=== PATIENT | male | born 1955 | race Caucasian/White ===

== ENCOUNTER 2018-01-25 08:09 | Emergency (ER) | payer OTHER, MEDICAID, SELFPAY ==
[2018-01-25 08:17] VITALS: BP 173/87; PULSE 92; RESP 18; TEMP 36.4; O2SAT 99; BMI 38.7
[2018-01-25 09:36] VITALS: BP 147/84; PULSE 87; RESP 16; TEMP 36.1; O2SAT 95
--- NOTE | 2018-01-25 11:07 | DI.CT.S_ITS ---
PROCEDURE: CT HEAD/BRAIN WO CON INDICATIONS: frequent falls, dizzy head sensation TECHNIQUE: Noncontrast 4.5 mm thick angled axial sections acquired from the foramen magnum to the vertex, with coronal and sagittal reformats. For radiation dose reduction, the following was used: automated exposure control, adjustment of mA and/or kV according to patient size. COMPARISON: None. FINDINGS: Image quality: Excellent. CSF spaces: Basal cisterns are patent. No extra-axial fluid collections. Ventricles are normal in size and shape. Brain: No midline shift. No intracranial masses or hemorrhage. Hoffman-white matter interface is normal. Skull and face: Calvarium and visualized facial bones are intact, without suspicious lesions. Sinuses: Visualized sinuses and mastoids are clear. IMPRESSION: No CT evidence of acute intracranial pathology. Dictated by: Gavin Reeder M.D. on 01/25/2018 at 12:18 Approved by: Gavin Reeder M.D. on 01/25/2018 at 12:20
--- NOTE | 2018-01-25 11:07 | DI.RAD.S_ITS ---
PROCEDURE: XR SACRUM COCCYX MIN 2V INDICATIONS: pain s/p fall TECHNIQUE: 3 views of the sacrum and coccyx acquired. COMPARISON: None. FINDINGS: Bones: No fractures or dislocations. No suspicious bony lesions. Age-appropriate degenerative changes of the sacroiliac joints and included lower lumbar spine are present. Soft tissues: Visualized bowel gas pattern is normal. No suspicious soft tissue densities. IMPRESSION: No displaced fracture of the sacrum or coccyx. Dictated by: Prem Leach M.D. on 01/25/2018 at 10:48 Approved by: Prem Leach M.D. on 01/25/2018 at 10:49
[2018-01-25 11:33] LABS: Add Manual Diff / Slide Review NO; Basophils Percent Auto 0.6 % (0-2); Eosinophils Percent Auto 3.5 % (2-4); Hematocrit 42.2 % (41-53); Hemoglobin 14.5 g/dL (13.5-17.5); Lymphocytes Percent Auto 21.5 % (25-40); Mean Corpuscular HGB Conc 34.4 % (30-36); Mean Corpuscular Hemoglobin 29.3 PG (26-34); Mean Corpuscular Volume 85.1 fL (80-100); Monocytes Percent Auto 7.9 % (3-14); Neutrophils Absolute Auto 4600 /uL (3000-5900); Neutrophils Percent Auto 66.5 % (50-75); Platelet Count 167 X10^3/uL (150-400); Red Blood Cell Count 4.96 X10^6/uL (4.5-5.9); Red Cell Distribution Width 13.6 % (11.6-14.8); White Blood Cell Count 6.9 X10^3/uL (4.5-11.0)
[2018-01-25 11:42] LABS: BUN Creatinine Ratio 36.7 (6-22); Calcium 9.3 mg/dL (8.4-10.2); Estimated Glomerular Filt Rate > 60.0 mL/min (>60); Glucose 320 mg/dL (80-110); HEMOLYSIS < 15 (0-50); Potassium 4.5 mmol/L (3.4-5.1); Sodium 138 mmol/L (137-145)
--- NOTE | 2018-01-25 12:40 | ED_ITS ---
HPI - Extremity Problem General Chief complaint: Extremity Problem,Nontraumatic Stated complaint: PT STATES THINKS HE BROKE TAILBONE History of Present Illness HPI Narrative: HPI 62-year-old male presents for evaluation of approximately 7 days of coccygeal pain after he slipped and fell onto his backside at home. Patient reports he's feeling fuzzy and lightheaded when he fell onto his botton on a hard brick surface. Patient has had ongoing coccygeal discomfort but remains able to ambulate without pain. Pain is worse when seated. Patient denied preceding lightheadedness, shortness breath, chest pain. M/S/F/SocHx notable for: please see HPI; remainder reviewed with patient and in chart. ROS: Negative constitutional, eye, cardiovascular, pulmonary, GI, , MSK, skin , neurologic, psychiatric, endocrine unless noted in the HPI. Exam Gen: Pleasant, non-toxic appearing, resting comfortably. HEENT: NC, AT, PEERL, EOMI. Resp: Clear to auscultation bilaterally, normal work of breathing, no accessory muscle usage. Card: Regular rate and rhythm with no murmurs, rubs, or gallops, extremities warm and well perfused. GI: Non-tender to palpation throughout all quadrants, no focal tenderness at McBurney's point, negative Cardozo's sign, non-distended, no rebound or guarding. : No suprapubic tenderness to palpation. MSK: No visible deformities, strength and tone without visually appreciable deficit. C, T, L spine without tenderness palpation. Minimal coccygeal turns palpation. Pelvis nontender to palpation. Patient ambulatory with a steady narrow-base nonantalgic gait. No pilonidal cyst/abscess. Skin: Normal color with no visible lesions. Neuro: Gen AO x 3, no facial asymmetry, no gaze preference, no slurring of speech. Pupils equal and reactive, EOMI, no facial asymmetry, no nystagmus, phonation intact, SCM 5/5 bilaterally. Cerebellar: bilateral upper extremities without dysmetria. Psych: Mood and affect appropriate. Labs / Imaging: WBC 6.9, hemoglobin 13.5, sodium 138, potassium 4.5, XR sacrum/coccyx: no displaced fracture of the sacrum or coccyx. CT Head: no acute intracranial abnormality. EKG: SR at [address]-segment elevations or depressions, T-wave inversions or new LBBB. TN interval 160 msec, QTc 388 msec, no delta waves, epsilon waves, coved or saddle ST-segment changes in leads V1-3, preseptal or inferior lead Q-waves, biphasic P-waves, or T-wave inversions; no LVH. MDM Previous chart, nursing note, labs, imaging, and vitals reviewed. A: 62-year-old male presents for evaluation of approximately 7 days of coccygeal pain after he slipped and fell onto his backside at home. DDx & Evaluation: exam without evidence of clinically apparent coccygeal abnormality, infection, for skin breakdown, plain films without evidence of displaced fracture, suspect contusion versus nondisplaced fracture. No evidence of pelvic rib fracture basement history exam, no further clinically apparent traumatic abnormalities. EKG without evidence of arrhythmia. CT head without evidence of intracranial abnormalities. Patient discharged with PCP follow-up, instructed to use NSAIDs. As the patient was observed sitting comfortably on a bed a doughnut was not prescribed. Impression: coccygeal pain. (please reference below for remainder of encounter information) Related Data Previous Rx's Medication Instructions Recorded polyethylene glycol 3350 [Miralax] 17 gm PO Q 12 H #60 packet 05/07/16 nystatin 1 graham TOPICAL BID #15 gm 06/02/16 insulin lispro [Humalog U-100 30 u SQ BIDAC #90 day 08/09/16 Insulin] insulin glargine [Lantus U-100 50 unit SQ BID #30 day 11/09/16 Insulin] Allergies Allergy/AdvReac Type Severity Reaction Status Date / Time amoxicillin [AMOXICILLIN] Allergy Mild UNKNOWN Verified 01/25/18 08:31 paroxetine [From PAXIL] Allergy Mild DEPRESSION, Verified 01/25/18 08:31 MEAN Penicillins [PENICILLINS] Allergy Mild UNKNOWN Verified 01/25/18 08:31 aspirin [ASPIRIN] Allergy Unknown NOSE BLEEDS Verified 01/25/18 08:31 atenolol [ATENOLOL] Allergy Unknown Verified 01/25/18 08:31 celecoxib [CELECOXIB] Allergy Unknown UNKNOWN Verified 01/25/18 08:31 diltiazem [DILTIAZEM] Allergy Unknown Verified 01/25/18 08:31 hydrochlorothiazide Allergy Unknown Verified 01/25/18 08:31 [HYDROCHLOROTHIAZIDE] ibuprofen [IBUPROFEN] Allergy Unknown SWELLING Verified 01/25/18 08:31 lisinopril [LISINOPRIL] Allergy Unknown Verified 01/25/18 08:31 losartan [LOSARTAN] Allergy Unknown Verified 01/25/18 08:31 methyldopa [METHYLDOPA] Allergy Unknown Verified 01/25/18 08:31 metoprolol [METOPROLOL] Allergy Unknown Verified 01/25/18 08:31 acetaminophen [ACETAMINOPHEN] AdvReac Unknown INCREASES Verified 01/25/18 08:[address] CONTRAST Allergy Unknown Uncoded 12/28/17 11:50 PFSH Surgical History History of tonsillectomy Social History Smoking Status: Former smoker MDM - Extremity (Nontraumatic) Lab Data Result diagrams: 01/25/18 11:23 01/25/18 11:23 Lab Results 01/25/18 01/25/18 Range/Units 11:23 11:23 WBC 6.9 (4.5-11.0) X10^3/uL RBC 4.96 (4.5-5.9) X10^6/uL Hgb 14.5 (13.5-17.5) g/dL Hct 42.2 (41-53) % MCV 85.1 (80-100) fL MCH 29.3 (26-34) PG MCHC 34.4 (30-36) % RDW 13.6 (11.6-14.8) % Plt Count 167 (150-400) X10^3/uL Neut % (Auto) 66.5 (50-75) % Lymph % (Auto) 21.5 L (25-40) % [place] % (Auto) 7.9 (3-14) % Eos % (Auto) 3.5 (2-4) % Baso % (Auto) 0.6 (0-2) % Neut # (Auto) 4600 (6859-1877) /uL Sodium 138 (137-145) mmol/L Potassium 4.5 (3.4-5.1) mmol/L Chloride 102.0 (98-107) mmol/L Carbon Dioxide 25.0 (22-32) mmol/L BUN 22.0 H (9-20) mg/dL Creatinine 0.60 L (0.66-1.25) mg/dL Estimated GFR > 60.0 (>60) mL/min BUN/Creatinine Ratio 36.7 H (6-22) Glucose 320 H (80-110) mg/dL Calcium 9.3 (8.4-10.2) mg/dL Discharge Plan Departure Prescriptions: No Action polyethylene glycol 3350 [Miralax] 17 GM powder in packet 17 gm PO Q 12 H Qty: 60 RF: 2 nystatin 15 GM cream 1 graham Topical BID Qty: 15 RF: 2 insulin lispro [Humalog U-100 Insulin] 100 UNIT/1 ML solution 30 u SQ BIDAC Qty: 90 RF: 0 insulin glargine [Lantus U-100 Insulin] 100 UNIT/1 ML solution 50 unit SQ BID Qty: 30 RF: 0
[2018-01-25 12:50] VITALS: BP 140/80; PULSE 72; RESP 12; O2SAT 95
== END 2018-01-25 12:52 | disposition home or self-care (01) ==
PROVIDERS: Emergency Provider Emergency Medicine; Family Provider Family Medicine; PCP Family Medicine
DX: M53.3 Sacrococcygeal disorders, not elsewhere classified (principal)
CPT/HCPCS: 36415; 70450; 72220; 80048; 85025; 93005; 99282; 99285